=== PATIENT | female | born 1975 | race Caucasian/White ===

== ENCOUNTER 2017-03-04 19:23 | Emergency (ER) | payer OTHER ==
--- NOTE | 2017-03-04 20:19 | RADIOLOGY REPORT ---
EXAMINATION: XR HAND, RIGHT CLINICAL INFORMATION: Pain. Redness. Warm. Swelling. COMPARISON: None TECHNIQUE: AP, lateral, and oblique views of the right hand. FINDINGS: The bones and soft tissues are normal. No fracture. Alignment is anatomic. Joint spaces are maintained. No erosions or soft tissue calcifications. IMPRESSION: Normal right hand.
--- NOTE | 2017-03-04 20:58 | ED HAND/WRIST INJURY COMPLAINT ---
History of Present Illness General Chief Complaint: Hand or Wrist Injury Stated Complaint: PT RT HAND IS SWOLLEN FROM WORKING OUTSIDE Source: patient Exam Limitations: no limitations Vital Signs & Intake/Output Vital Signs & Intake/Output Vital Signs Date Time Temp Pulse Resp B/P B/P Pulse O2 O2 Flow FiO2 Mean Ox Delivery Rate 03/04 2134 97.7 80 18 126/66 100 Room Air 03/04 2133 Room Air 03/04 1952 99.0 81 22 118/76 98 Allergies Coded Allergies: No Known Allergies (03/04/17) Reconcile Medications Cephalexin (Keflex) 500 MG CAPSULE 1 CAP PO TID CELLULITIS Naproxen (Naprosyn) 500 MG TABLET 1 TAB PO BID PRN INFLAMMATION/PAIN Triage Note: PER PT GARDENING THURSDAY, PRICKED RT HAND WITH PRICKER, NOW WARM, RED AND SWOLLEN ,DECREASED ROM Triage Nurses Notes Reviewed? yes Occurred: 4 DAYS Duration: day(s): (4) Timing: no prior history Injury Environment: home Severity: moderate Severity Numbers: 5 Pain/Injury Location: Right: Hand. Context: PRICKED BY PRICKER ADAM Modifying Factors: Improves With: immobilization. Worsens With: movement. : No Patient currently breastfeeds: No HPI: Patient is a 41-year-old female with no medical history presenting to the emergency department with chief complaint of redness and swelling to the dorsum of the right hand is benign for past 3 days after she was pricked by blush. Patient denies any fevers or chills. Denies taking any medications over-the- counter to help. Denies numbness or tingling. No nausea or vomiting. Denies any other injury. Denies any itchiness. Pain is mild to moderate worse with range of motion and palpation. (MIKE ORTEGA) Past History Travel History Traveled to [place] past 21 day No Medical History Any Pertinent Medical History? see below for history Neurological: NONE Cardiovascular: NONE Respiratory: NONE Gastrointestinal: NONE Hepatic: NONE Renal: NONE Musculoskeletal: NONE Psychiatric: NONE Endocrine: NONE Surgical History Surgical History: non-contributory Psychosocial History What is your primary language Macedonian Tobacco Use: Never used Family History Hx Contributory? No (MIKE ORTEGA) Review of Systems Review of Systems Constitutional: Reports: no symptoms. Comments Review of systems: See HPI, All other systems negative. Constitutional, no chills fever or weight loss HEENT: No visual changes no sore throat no congestion Cardiovascular: No chest pain ,palpitation Skin, no jaundice Respiratory: No dyspnea cough sputum or hemoptysis GI: No nausea no vomiting Muscle skeletal: no back pain, no neck pain, Neurologic: No numbness Psych: No stress anxiety or depression,. Heme/endocrine: No bruising no bleeding Immunology: No splenectomy or history of AIDS (MIKE ORTEGA) Physical Exam Physical Exam General Appearance: well developed/nourished, no apparent distress, alert, awake , comfortable Hand Left: normal inspection, normal range of motion Hand Right: swelling, tender Comments: Well-developed well-nourished no apparent distress. HEENT: Atraumatic, extraocular motion intact Neck: Supple, no lymphadenopathy Back: Nontender Respiratory: No respiratory distress Extremities: Mild edema noted on the dorsum of the right hand just proximal to the second metacarpal that extends to the base of the right wrist. Mildly erythematous. Mildly tender to palpation in this area. Warm to palpation over this area. Nontender to palpation over the digits of the right upper extremity. Full range of motion of right wrist without difficulty or pain. Radial pulses are 2+ bilaterally. Capillary refill is intact in upper extremity bilaterally. Neuro: Alert and oriented x3, motor and sensory intact in upper extremity is bilaterally. Psych: Mood affect normal, normal memory normal judgment. (MIKE ORTEGA) Progress Differential Diagnosis: contusion, compartment syndrome, dislocation, fracture, septic arthritis, sprain, CELLULITIS Plan of Care: Current Medications Sig/Efrain Start time Last Medication Dose Stop Time Status Admin Ketorolac 30 MG ONE ONE 03/04 2115 UNVr Tromethamine 03/04 2116 (Toradol) Diagnostic Imaging: Viewed by Me: Radiology Read. Discussed w/RAD: Radiology Read. Radiology Impression: PATIENT: PEYTON NYE PRESENT AGE: 41 PATIENT ACCOUNT NO: [id number] : 77 LOCATION: [facility] ORDERING PHYSICIAN: SARBJIT VILLAFUERTE DO (TBS) SERVICE DATE: 03/04/17 EXAM TYPE: RAD - XRY-HAND, RIGHT EXAMINATION: XR HAND, RIGHT CLINICAL INFORMATION: Pain. Redness. Warm. Swelling. COMPARISON: None TECHNIQUE: AP, lateral, and oblique views of the right hand. FINDINGS: The bones and soft tissues are normal. No fracture. Alignment is anatomic. Joint spaces are maintained. No erosions or soft tissue calcifications. IMPRESSION: Normal right hand. DICTATED BY: JUAN REDD MD DATE/TIME DICTATED:03/04/172013 SOLOIST DANCER:KUMAR DATE/TIME TRANSCRIBED:03/04/172013 (MIKE ORTEGA) Departure Departure Time of Disposition: 2109 Disposition: HOME OR SELF CARE Condition: Stable Clinical Impression Primary Impression: Cellulitis Qualifiers: Site of cellulitis: extremity Site of cellulitis of extremity: upper extremity Laterality: right Qualified Code: L03.113 - Cellulitis of right upper limb Referrals: SHERRELL REILLY,BHUMIKA Thompson (PCP/Family) Additional Instructions: Follow-up with your primary care physician call to make an appointment. Take antibiotics as prescribed. Take anti-inflammatory's as prescribed. Return for any worsening redness, swelling or fevers. Departure Forms: Customer Survey General Discharge Information Prescriptions: Current Visit Scripts Cephalexin (Keflex) 1 CAP PO TID #30 CAP Naproxen (Naprosyn) 1 TAB PO BID PRN INFLAMMATION/PAIN #20 TAB (MIKE ORTEGA) PA/PLATE FITTER Co-Sign Statement Statement: ED Attending supervision documentation- [] I saw and evaluated the patient. I have also reviewed all the pertinent lab results and diagnostic results. I agree with the findings and the plan of care as documented in the PA's/PLATE FITTER's documentation. [X] I have reviewed the ED Record and agree with the PA's/PLATE FITTER's documentation. [] Additions or exceptions (if any) to the PAs/PLATE FITTER's note and plan are summarized below: [] (RUBI REILLY,ARIE)
[2017-03-04] MEDS ORDERED: NAPROSYN500 M1 PO (21:12)
[2017-03-04] MEDS ORDERED: KEFLEX500 M1 PO (21:12)
[2017-03-04 21:34] VITALS: BP 126/66
== END 2017-03-04 21:25 ==
LOC: ERH 19:23
DX: L03.113 Cellulitis of right upper limb (principal)
CPT/HCPCS: 73130-RT; 96372; J1885